=== PATIENT | male | born 1985 | race Caucasian/White ===

== ENCOUNTER 2022-11-22 09:23 | Emergency (ER) | payer BC ==
[2022-11-22] MEDS ORDERED: Ketorolac 30 MG/ML SDV IVPUSH ONE ×2 (09:34→10:03)
[2022-11-22] MEDS ORDERED: Sodium Chloride 0.9% 1,000 ML IV ONE (09:45)
[2022-11-22 09:49] LABS: BASOPHILS ABSOLUTE AUTO 0.04 10^3/uL (0.00-0.50); BASOPHILS PERCENT AUTO 0.3 % (0-1); EOSINOPHILS ABSOLUTE AUTO 0.05 10^3/uL (0.00-1.50); EOSINOPHILS PERCENT AUTO 0.3 % (0-6); HEMATOCRIT 39.8 % (42.0-52.0); HEMOGLOBIN 13.9 g/dL (14.0-18.0); IMMATURE GRAN ABSOLUTE AUTO 0.03 10^3/uL (0.00-0.49); IMMATURE GRAN PERCENT AUTO 0.2 % (0.0-4.9); LYMPHOCYTES ABSOLUTE AUTO 1.25 10^3/uL (0.60-5.00); LYMPHOCYTES PERCENT AUTO 7.8 % (24-44); MEAN CORPUSCULAR HEMOGLOBIN 30.6 pg (27.0-32.0); MEAN CORPUSCULAR HGB CONC 34.9 g/dL (32.0-36.0); MEAN CORPUSCULAR VOLUME 87.7 fL (83.0-97.0); MONOCYTES ABSOLUTE AUTO 1.07 10^3/uL (0.00-1.50); MONOCYTES PERCENT AUTO 6.7 % (0-10); NEUTROPHILS ABSOLUTE AUTO 13.52 x10^3/uL (1.80-8.00); NEUTROPHILS PERCENT AUTO 84.7 % (41-71); PLATELET COUNT,PLT 377 10^3/uL (150-400); RED BLOOD CELL COUNT 4.54 x10^6/uL (4.50-6.00)
[2022-11-22 09:50] LABS: APPEARANCE,URINE CLEAR (CLEAR); COLOR,URINE YELLOW (YELLOW); GLUCOSE,URINE NEGATIVE (NEGATIVE); KETONES,URINE 80 mg/dL (NEGATIVE); LEUKOCYTE ESTERASE,URINE NEGATIVE (NEGATIVE); NITRITE,URINE NEGATIVE (NEGATIVE); OCCULT BLOOD,URINE LARGE (NEGATIVE); PH,URINE 6.5 (4.5-8.0); PROTEIN,URINE 30 mg/dL (NEGATIVE); UROBILINOGEN,URINE 0.2 EU/dL (0.2-1.0)
[2022-11-22 09:52] LABS: BILIRUBIN,URINE SMALL (NEGATIVE)
[2022-11-22 09:58] LABS: ALBUMIN 4.2 g/dL (3.4-5.0); BILIRUBIN TOTAL 0.8 mg/dL (0.0-1.0); CALCIUM 9.6 mg/dL (8.4-10.1); CREATININE 1.4 mg/dL (0.7-1.3); EST CRCL DRUG DOSING (CG) 66.15 mL/min; POTASSIUM,K 4.4 mEq/L (3.5-5.0); PROTEIN TOTAL,TP 7.8 g/dL (6.4-8.2)
[2022-11-22 09:59] LABS: BACTERIA,URINE RARE /HPF (NOT SEEN); EPITHELIAL CELLS,URINE RARE /HPF (NOT SEEN); RBC,URINE 50-75 /HPF (0-5); WBC,URINE 0-5 /HPF (0-5)
[2022-11-22] MEDS ORDERED: Naloxone 2 MG/2 ML Syringe IVPUSH PRN (11:30)
[2022-11-22] MEDS ORDERED: Morphine 2 MG/ML SYRINGE IVPUSH ONE (11:30)
== END 2022-11-22 11:46 | disposition home or self-care (01) ==
LOC: CC.ED 09:23 → UNMERGE 09:23 → MERGE 09:23 → CC.ED 11:46
DX: N13.2 Hydronephrosis with renal and ureteral calculous obstruction (principal); Z88.2 Allergy status to sulfonamides; Z72.0 Tobacco use; Z90.49 Acquired absence of other specified parts of digestive tract
CPT/HCPCS: 36415; 74176; 80053; 81001; 82150; 83690; 85025; 96361; 96374; 96375; 96376; 99284; 99285-25; J1885; J2270; J7030

== ENCOUNTER 2023-02-27 11:29 | Emergency (ER) | payer BC, MEDICAID ==
[2023-02-27] MEDS ORDERED: HYDROmorphone 0.5 MG/0.5 ML Syringe SUBCUT STA (11:58)
[2023-02-27] MEDS ORDERED: Take Home: Acetaminophen/HYDROcodone 325-5 MG, 2 Tab Pack PO ONE (12:25)
== END 2023-02-27 12:50 | disposition home or self-care (01) ==
LOC: CC.ED 11:29
DX: S22.32XA Fracture of one rib, left side, initial encounter for closed fracture (principal); F17.210 Nicotine dependence, cigarettes, uncomplicated; Z88.2 Allergy status to sulfonamides; W19.XXXA Unspecified fall, initial encounter
CPT/HCPCS: 71101; 96372; 99283; A9270; J1170

== ENCOUNTER 2023-03-03 11:26 | Emergency (ER) | payer MEDICAID ==
[2023-03-03] MEDS ORDERED: HYDROmorphone 0.5 MG/0.5 ML Syringe IVPUSH ONE (11:41)
[2023-03-03] MEDS ORDERED: Ketorolac 30 MG/ML SDV IVPUSH ONE (12:29)
== END 2023-03-03 12:48 | disposition home or self-care (01) ==
LOC: CC.ED 11:26
DX: S22.32XD Fracture of one rib, left side, subsequent encounter for fracture with routine healing (principal); Z88.2 Allergy status to sulfonamides; W19.XXXD Unspecified fall, subsequent encounter
CPT/HCPCS: 71046; 96374; 96375; 99283; J1170; J1885

== ENCOUNTER 2023-04-13 06:55 | Emergency (ER) | payer MEDICAID ==
[2023-04-13] MEDS ORDERED: Metoclopramide 10 MG/2 ML SDV IVPUSH ONE (07:22)
[2023-04-13] MEDS ORDERED: Famotidine 20 MG/2 ML SDV IVPUSH ONE (07:22)
[2023-04-13] MEDS ORDERED: Ketorolac 30 MG/ML SDV IVPUSH ONE (07:22)
[2023-04-13] MEDS ORDERED: Sodium Chloride 0.9% 1,000 ML IV ONE ×2 (07:22→09:58)
[2023-04-13 07:39] LABS: BASOPHILS ABSOLUTE AUTO 0.05 10^3/uL (0.00-0.50); BASOPHILS PERCENT AUTO 0.4 % (0-1); EOSINOPHILS ABSOLUTE AUTO 0.23 10^3/uL (0.00-1.50); EOSINOPHILS PERCENT AUTO 1.7 % (0-6); HEMATOCRIT 43.2 % (42.0-52.0); HEMOGLOBIN 15.1 g/dL (14.0-18.0); IMMATURE GRAN ABSOLUTE AUTO 0.08 10^3/uL (0.00-0.49); IMMATURE GRAN PERCENT AUTO 0.6 % (0.0-4.9); LYMPHOCYTES ABSOLUTE AUTO 1.59 10^3/uL (0.60-5.00); LYMPHOCYTES PERCENT AUTO 11.6 % (24-44); MEAN CORPUSCULAR HEMOGLOBIN 32.2 pg (27.0-32.0); MEAN CORPUSCULAR VOLUME 92.1 fL (83.0-97.0); MONOCYTES ABSOLUTE AUTO 1.26 10^3/uL (0.00-1.50); MONOCYTES PERCENT AUTO 9.2 % (0-10); NEUTROPHILS ABSOLUTE AUTO 10.46 x10^3/uL (1.80-8.00); NEUTROPHILS PERCENT AUTO 76.5 % (41-71); PLATELET COUNT,PLT 425 10^3/uL (150-400); RED BLOOD CELL COUNT 4.69 x10^6/uL (4.50-6.00); WHITE BLOOD CELL COUNT,WBC 13.7 10^3/uL (4.0-11.0)
[2023-04-13] MEDS ORDERED: Iopamidol 755 Mg/ML 100 ML Bottle IVPUSH ONE (07:54)
[2023-04-13 07:59] LABS: LACTIC ACID 2.2 mmol/L (0.4-2.0)
[2023-04-13 08:04] LABS: ALANINE AMINOTRANSFERASE,ALT 33 U/L (12-78); ALBUMIN 4.3 g/dL (3.4-5.0); ALKALINE PHOSPHATASE 101 U/L (46-116); ASPARTATE AMNIOTRANSFERASE,AST 44 U/L (15-37); BLOOD UREA NITROGEN,BUN 9 mg/dL (7-18); CALCIUM 9.5 mg/dL (8.4-10.1); CARBON DIOXIDE,CO2 26 mmol/L (21-32); CHLORIDE,CL 100 mEq/L (98-106); GLUCOSE RANDOM 123 mg/dL (75-99); LIPASE 19 U/L (16-77); POTASSIUM,K 3.7 mEq/L (3.5-5.0); PROTEIN TOTAL,TP 8.3 g/dL (6.4-8.2); SODIUM,NA 139 mEq/L (136-145)
[2023-04-13 08:08] LABS: ESTIMATED GFR 101 mL/min (>=60); ETHANOL BLOOD MEDICAL < 3 mg/dL (0-3)
[2023-04-13] MEDS ORDERED: Dicyclomine 10 MG Cap PO ONE (09:58)
[2023-04-13 10:49] LABS: APPEARANCE,URINE CLEAR (CLEAR); BILIRUBIN,URINE NEGATIVE (NEGATIVE); COLOR,URINE YELLOW (YELLOW); GLUCOSE,URINE NEGATIVE (NEGATIVE); KETONES,URINE NEGATIVE (NEGATIVE); LEUKOCYTE ESTERASE,URINE NEGATIVE (NEGATIVE); NITRITE,URINE NEGATIVE (NEGATIVE); OCCULT BLOOD,URINE TRACE-INTACT (NEGATIVE); PROTEIN,URINE TRACE mg/dL (NEGATIVE)
[2023-04-13 10:58] LABS: BACTERIA,URINE RARE /HPF (NOT SEEN); EPITHELIAL CELLS,URINE OCCASIONAL /HPF (NOT SEEN); RBC,URINE 0-5 /HPF (0-5); WBC,URINE 0-5 /HPF (0-5)
[2023-04-13 10:59] LABS: AMPHETAMINES,URINE NEGATIVE (NEGATIVE); BARBITURATES,URINE NEGATIVE (NEGATIVE); BENZODIAZEPINE,URINE NEGATIVE (NEGATIVE); MDMA (ECSTASY), URINE NEGATIVE (NEGATIVE); METHADONE,URINE NEGATIVE (NEGATIVE); METHAMPHETAMINES,URINE NEGATIVE (NEGATIVE); OPIATES,URINE NEGATIVE (NEGATIVE); OXYCODONE,URINE NEGATIVE (NEGATIVE); PHENCYCLIDINE,URINE NEGATIVE (NEGATIVE); TCA,URINE NEGATIVE (NEGATIVE)
== END 2023-04-13 11:59 | disposition home or self-care (01) ==
LOC: CC.ED 06:55
DX: K52.9 Noninfective gastroenteritis and colitis, unspecified (principal); F17.210 Nicotine dependence, cigarettes, uncomplicated; Z88.2 Allergy status to sulfonamides; Z90.49 Acquired absence of other specified parts of digestive tract; Z20.822 Contact with and (suspected) exposure to COVID-19
CPT/HCPCS: 36415; 74177; 80053; 80305-QW; 80307; 81001; 83605; 83690; 83735; 84484; 85025; 87804; 96361; 96374; 96375; 99284; 99285-25; A9270-GY; J1885; J2765; J3490; J7030; Q9967; U0002

== ENCOUNTER 2023-04-17 17:55 | Emergency (ER) | payer MEDICAID ==
[2023-04-17] MEDS: Ketorolac 30 MG/ML SDV IM ONE (18:13)
[2023-04-17] MEDS: Orphenadrine 60 MG/2 ML Inj IM ONE (18:13)
[2023-04-17] MEDS ORDERED: Lidocaine 5% 700 MG Patch TRDERM ONE (18:39)
[2023-04-17] MEDS: Lidocaine 4% 1 each Patch TOP PRN (18:46)
[2023-04-17] MEDS: Lidocaine 4% 1 each Patch ONE (18:51)
== END 2023-04-17 18:50 | disposition home or self-care (01) ==
LOC: SUPCPDRO 18:11 → CC.ED 18:11
DX: S22.32XA Fracture of one rib, left side, initial encounter for closed fracture (principal); Z90.49 Acquired absence of other specified parts of digestive tract; Z88.2 Allergy status to sulfonamides; W18.2XXA Fall in (into) shower or empty bathtub, initial encounter
CPT/HCPCS: 71101; 96372; 99283; J1885; J2360